=== PATIENT | female | born 1955 | race Caucasian/White ===

== ENCOUNTER → 2017-04-08 | Day surgery (SDC) | payer OTHER ==
[~2017-04-08] VITALS: Ht 165.1 cm; Wt 72.6 kg
[~2017-04-08] MED LIST: JANUMET 50-1,01 EACH PO; LISINOPRIL
--- NOTE | 2017-04-08 10:35 | Operative Report ---
Operative/Inv Procedure Report Surgery Date: 04/08/17 Name of Procedure: LEEP Pre-Operative Diagnosis: jonny 2 Post-Operative Diagnosis: same Estimated Blood Loss: scant Surgeon/Diamond Saw Operator: JOSH PASCUAL,SETH Fabian Anesthesia: local monitored anesthesi Operative/Procedure Note Note: The patient was brought to the operating room timeout was conducted while the patient was awake. After the induction of anesthesia patient was prepped and draped in usual sterile fashion and positioned in low stirrups. She was grounded and insulated speculum was placed in the vagina cervix was infiltrated with a dilute solution of lidocaine with epinephrine. The endocervical canal was noted to be straight. The cervix was painted with Lugol's solution out- lining in the area of dysplasia A large loop electrode was utilized to remove the transformation zone this was then sent to pathology for examination. a second pass was done on the ptr right from 7-11oclick and an ECC was performed Hemostasis was achieved with electrocautery followed by Monsel solution once excellent hemostasis was achieved the speculum was removed patient was awakened and moved to the recovery room in good condition sponge instument and needle counts were correct 3
== END ==
LOC: STS 03:13
DX: N87.1 Moderate cervical dysplasia (principal); E78.00 Pure hypercholesterolemia, unspecified; F17.200 Nicotine dependence, unspecified, uncomplicated; I10 Essential (primary) hypertension; I73.9 Peripheral vascular disease, unspecified; Z86.19 Personal history of other infectious and parasitic diseases
CPT/HCPCS: 88305; 88307; J0131; J1885; J2250; J2405